=== PATIENT | female | born 1955 | race Caucasian/White ===

== ENCOUNTER → 2016-04-14 | Outpatient (CLI) | payer BC, OTHER ==
[~2016-04-14] MED LIST: IBUPROFEN200 M2 PO; LORTAB PO; MULTIVITAMINS PO; PROVERA2.5 MG PO; SYNTHROID112 MCG PO; VITAMIN B-12100 MC1 PO; ZOCOR40 MG PO; ZOFRAN ODT4 MG PO; ZOLOFT100 MG PO
== END ==
LOC: RAD 10:35
DX: Z12.31 Encounter for screening mammogram for malignant neoplasm of breast (principal)

== ENCOUNTER → 2017-08-30 | Outpatient (CLI) | payer BC, OTHER | LOC: RAD 07:43 | DX: Z12.31 Encounter for screening mammogram for malignant neoplasm of breast (principal) ==

== ENCOUNTER → 2019-04-24 | Outpatient (CLI) | payer BC, OTHER | LOC: BC 10:45 | DX: Z12.31 Encounter for screening mammogram for malignant neoplasm of breast (principal) ==

== ENCOUNTER → 2020-08-28 | Outpatient (CLI) | payer OTHER | LOC: RAD 09:41 | PROVIDERS: ATTEND Obstetrics & Gynecology | DX: Z12.31 Encounter for screening mammogram for malignant neoplasm of breast (principal) ==